=== PATIENT | female | born 1955 | race African-American/Black ===

== ENCOUNTER 2018-03-18 21:23 | Emergency (ER) | payer MEDICAID ==
[~2018-03-18] VITALS: Ht 162.6 cm; Wt 136.0 kg
[~2018-03-18 21:23] MED LIST: DICL75TA5; FURO40TA5; HYDR2TAB7; METH-612; MSCON15; OXYC-515; PREG150C; TRIAMTERENE
[2018-03-18 21:31] VITALS: BP 183/102
== END 2018-03-19 03:29 | disposition left against medical advice (07) ==
LOC: ER 22:14
DX: Z53.21 Procedure and treatment not carried out due to patient leaving prior to being seen by health care provider (principal)

== ENCOUNTER 2018-08-13 20:31 | Inpatient (IN) | payer MEDICAID ==
[~2018-08-13] VITALS: Ht 157.5 cm; Wt 127.0 kg
[2018-08-13] MEDS ORDERED: KETOROLAC 30MG/ML VIAL IV STA (22:46)
[2018-08-13] MEDS ORDERED: SODIUM CHLORIDE 0.9% 1,000 ML IV ONE (22:46)
[2018-08-14 00:26] LABS: BASOPHILS % 0.7 % (0.0-2.0); EOSINOPHILS % 6.2 % (0.0-5.0); HEMATOCRIT. 43.6 % (36.0-48.0); HEMOGLOBIN. 13.9 g/dL (12.0-16.0); LYMPHOCYTES % 43.4 % (20.0-50.0); MEAN CORPUSCULAR HEMOGLOBIN 26.8 pg (28.0-32.0); MEAN CORPUSCULAR VOLUME 83.9 fL (81.0-99.0); MEAN PLATELET VOLUME 8.7 fl (7.4-10.4); MONOCYTES % 7.7 % (2.0-8.0); PLATELET 190 x1000/uL (130-400); RED BLOOD CELL COUNT 5.19 mill/uL (4.2-5.4); RED CELL DISTRIBUTION WIDTH 15.2 % (11.6-14.6)
[2018-08-14 00:31] LABS: PROTHROMBIN TIME 10.1 sec (9.1-11.1)
[2018-08-14 01:47] LABS: CHLORIDE 114 mEq/L (98-107)
[2018-08-14] MEDS ORDERED: MORPHINE SULFATE 4 MG/ML CPJ (NOT FOR IM USE) IV ONE (02:15)
[2018-08-14] MEDS ORDERED: SODIUM CHLORIDE 0.9% 1,000 ML IV SCH ×2 (02:30→08:45)
[2018-08-14 08:07] LABS: CLARITY URINE CLEAR (CLEAR); COLOR URINE YELLOW (YELLOW); KETONES URINE NEGATIVE (NEGATIVE); LEUKOCYTE ESTERASE URINE NEGATIVE (NEGATIVE); NITRITE URINE NEGATIVE (NEGATIVE); OCCULT BLOOD URINE NEGATIVE (NEGATIVE); PROTEIN URINE NEGATIVE (NEGATIVE); SPECIFIC GRAVITY URINE 1.014 (1.005-1.030); UROBILINOGEN URINE 0.2 E.U./dL (0.2-1.0)
[2018-08-14] MEDS ORDERED: DIPHENHYDRAMINE 50MG/ML VIAL IV PRN (08:15)
[2018-08-14] MEDS ORDERED: IPRATROPIUM/ALBUTEROL 0.5-3(2.5)MG/3ML NEB INH PRN (08:15)
[2018-08-14] MEDS ORDERED: ENOXAPARIN 40MG/0.4ML SYR SUBCUT SCH (08:15)
[2018-08-14 08:45] VITALS: BP 130/82
[2018-08-14 09:00] VITALS: BP 130/82
[2018-08-14] MEDS: ENOXAPARIN 40MG/0.4ML SYR SUBCUT SCH ×2 (10:24→21:44)
[2018-08-14] MEDS: ONDANSETRON HCL 4MG/2ML INJ IV PRN ×2 (10:24→21:44)
[2018-08-14] MEDS: HYDROMORPHONE HCL/PF 2MG/ML CPJ IV PRN ×2 (10:26→21:44)
[2018-08-14] MEDS ORDERED: GLYB5TAB7 MT (11:41)
[2018-08-14] MEDS ORDERED: POTA99TA4 MT (11:42)
[2018-08-14] MEDS ORDERED: OXYC-105 PO (11:44)
[2018-08-14] MEDS: BLOOD SUGAR DIAGNOSTIC STRIP TEST SCH ×4 (11:55→23:27)
[2018-08-14] MEDS: INSULIN LISPRO 100 UNITS/ML SUBCUT SCH ×3 (11:55→21:00)
[2018-08-14 12:00] VITALS: BP 131/80
[2018-08-14 16:00] VITALS: BP 129/86
[2018-08-14] MEDS: DEXTROSE 50% WATER 50ML SYRINGE IV PRN ×2 (16:53→17:11)
[2018-08-14] MEDS: DEXT 5%/0.45% NACL 1000ML 1,000 ML IV SCH (21:35)
[2018-08-15] VITALS: BP 109/73
[2018-08-15] MEDS: BLOOD SUGAR DIAGNOSTIC STRIP TEST SCH ×8 (00:40→21:15)
[2018-08-15 04:00] VITALS: BP 137/75
[2018-08-15] MEDS: INSULIN LISPRO 100 UNITS/ML SUBCUT SCH ×4 (07:50→21:15)
[2018-08-15 08:00] VITALS: BP 116/62
[2018-08-15] MEDS: ENOXAPARIN 40MG/0.4ML SYR SUBCUT SCH ×2 (09:33→20:09)
[2018-08-15] MEDS: DEXT 5%/0.45% NACL 1000ML 1,000 ML IV SCH ×2 (09:33→22:40)
[2018-08-15] MEDS: HYDROMORPHONE HCL/PF 2MG/ML CPJ IV PRN (09:33)
[2018-08-15 12:00] VITALS: BP 141/87
[2018-08-15 16:00] VITALS: BP 139/70
[2018-08-15 20:00] VITALS: BP 148/70
[2018-08-15] MEDS: HYDROMORPHONE HCL 2MG TABLET PO PRN (20:10)
[2018-08-15 22:33] LABS: BASOPHILS % 0.7 % (0.0-2.0); EOSINOPHILS % 4.3 % (0.0-5.0); HEMATOCRIT. 39.9 % (36.0-48.0); HEMOGLOBIN. 12.8 g/dL (12.0-16.0); LYMPHOCYTES % 34.8 % (20.0-50.0); MEAN CORPUSCULAR HEMOGLOBIN 26.7 pg (28.0-32.0); MEAN CORPUSCULAR VOLUME 83.5 fL (81.0-99.0); MEAN PLATELET VOLUME 8.2 fl (7.4-10.4); MONOCYTES % 9.5 % (2.0-8.0); NEUTROPHILS % 50.7 % (40.0-76.0); PLATELET 179 x1000/uL (130-400); RED BLOOD CELL COUNT 4.78 mill/uL (4.2-5.4); RED CELL DISTRIBUTION WIDTH 14.6 % (11.6-14.6)
[2018-08-15 22:41] LABS: CHLORIDE 112 mEq/L (98-107)
[2018-08-16] VITALS: BP 143/76
[2018-08-16] MEDS: HYDROMORPHONE HCL 2MG TABLET PO PRN ×2 (05:54→15:46)
[2018-08-16 06:56] LABS: BASOPHILS % 0.5 % (0.0-2.0); HEMATOCRIT. 40.8 % (36.0-48.0); HEMOGLOBIN. 12.8 g/dL (12.0-16.0); LYMPHOCYTES % 45.8 % (20.0-50.0); MEAN CORPUSCULAR HEMOGLOBIN 26.3 pg (28.0-32.0); MEAN CORPUSCULAR VOLUME 83.7 fL (81.0-99.0); MEAN PLATELET VOLUME 8.3 fl (7.4-10.4); MONOCYTES % 10.6 % (2.0-8.0); NEUTROPHILS % 38.1 % (40.0-76.0); PLATELET 170 x1000/uL (130-400); RED BLOOD CELL COUNT 4.87 mill/uL (4.2-5.4); RED CELL DISTRIBUTION WIDTH 14.8 % (11.6-14.6)
[2018-08-16 07:18] LABS: CHLORIDE 113 mEq/L (98-107)
[2018-08-16] MEDS: BLOOD SUGAR DIAGNOSTIC STRIP TEST SCH ×3 (07:20→17:15)
[2018-08-16] MEDS: INSULIN LISPRO 100 UNITS/ML SUBCUT SCH ×3 (07:50→17:16)
[2018-08-16 08:00] VITALS: BP 145/92
[2018-08-16] MEDS: ENOXAPARIN 40MG/0.4ML SYR SUBCUT SCH (10:50)
[2018-08-16 12:00] VITALS: BP 144/90
[2018-08-16] MEDS: DEXT 5%/0.45% NACL 1000ML 1,000 ML IV SCH (12:00)
[2018-08-16 16:00] VITALS: BP 135/78
[2018-08-16] MEDS ORDERED: LOPERAMIDE HCL 2MG CAPSULE PO NR (16:45)
[2018-08-16] MEDS ORDERED: IMOD GT (16:51)
[2018-08-16 18:14] VITALS: BP 130/53
== END 2018-08-16 19:20 | disposition home or self-care (01) | DRG 254 ==
LOC: ER 20:31 → 6EST 08-14 02:03 → EDBEDREQ 08-14 04:54 → ENRESERV 08-14 05:20 → CANRESERV 08-14 05:20 → ENRESERV 08-14 08:00
PROVIDERS: ADMIT Internal Medicine; ATTEND Internal Medicine
DX: K43.9 Ventral hernia without obstruction or gangrene (principal); E11.649 Type 2 diabetes mellitus with hypoglycemia without coma; I10 Essential (primary) hypertension; F17.200 Nicotine dependence, unspecified, uncomplicated; M79.7 Fibromyalgia; Z86.73 Personal history of transient ischemic attack (TIA), and cerebral infarction without residual deficits; Z88.0 Allergy status to penicillin; Z88.8 Allergy status to other drugs, medicaments and biological substances
CPT/HCPCS: 36415; 71045; 74176; 80048; 82962; 93005; 93970; 96361; 96374; 99285; J1170; J1650; J1815; J1885; J2270; J2405; J3490; J7030

== ENCOUNTER 2019-03-17 21:34 | Inpatient (IN) | payer MEDICAID ==
[~2019-03-17] VITALS: Ht 157.5 cm; Wt 126.6 kg
[~2019-03-17 21:34] MED LIST changes: +GLYB5TAB7 MT; +IMOD GT; +OXYC-105 PO; +POTA99TA4 MT
[2019-03-17 23:16] LABS: BASOPHILS % 1.1 % (0.0-2.0); EOSINOPHILS % 4.7 % (0.0-5.0); HEMATOCRIT. 42.6 % (36.0-48.0); LYMPHOCYTES % 39.1 % (20.0-50.0); MEAN CORPUSCULAR HEMOGLOBIN 27.4 pg (28.0-32.0); MEAN CORPUSCULAR VOLUME 83.5 fL (81.0-99.0); MEAN PLATELET VOLUME 7.7 fl (7.4-10.4); MONOCYTES % 8.7 % (2.0-8.0); NEUTROPHILS % 46.4 % (40.0-76.0); PLATELET 210 x1000/uL (130-400); RED BLOOD CELL COUNT 5.11 mill/uL (4.2-5.4); RED CELL DISTRIBUTION WIDTH 13.8 % (11.6-14.6)
[2019-03-17 23:21] LABS: CHLORIDE 110 mEq/L (98-107)
[2019-03-17] MEDS ORDERED: ONDANSETRON HCL 4MG/2ML INJ IV STA (23:53)
[2019-03-17] MEDS ORDERED: SODIUM CHLORIDE 0.9% 1,000 ML IV ONE (23:53)
[2019-03-17] MEDS ORDERED: MORPHINE SULFATE 4 MG/ML CPJ (NOT FOR IM USE) IV STA (23:53)
[2019-03-18 00:14] LABS: CLARITY URINE CLEAR (CLEAR); COLOR URINE YELLOW (YELLOW); KETONES URINE NEGATIVE (NEGATIVE); LEUKOCYTE ESTERASE URINE NEGATIVE (NEGATIVE); NITRITE URINE NEGATIVE (NEGATIVE); OCCULT BLOOD URINE NEGATIVE (NEGATIVE); PROTEIN URINE NEGATIVE (NEGATIVE)
[2019-03-18] MEDS: MORPHINE SULFATE 2 MG/ML CPJ (NOT FOR IM USE) IV PRN ×3 (06:54→16:19)
[2019-03-18] MEDS: ONDANSETRON HCL 4MG/2ML INJ IV PRN ×2 (06:54→16:29)
[2019-03-18] MEDS: DEXT 5%/0.45% NACL KCL 20MEQ/L 1,000 ML IV SCH ×2 (07:29→16:19)
[2019-03-18] MEDS ORDERED: SODIUM BICARBONATE 4% (2.4MEQ) 5ML VIAL IV ONE (07:38)
[2019-03-18] MEDS ORDERED: LIDOCAINE HCL 1% 20ML VIAL (Pyxis) INJ ONE (07:38)
[2019-03-18 08:30] VITALS: BP 117/75
[2019-03-18 08:40] VITALS: BP 117/75
[2019-03-18] MEDS ORDERED: HYDROCODONE/ACETAMINOPHEN 5/325MG TABLET PO PRN (08:45)
[2019-03-18 12:00] VITALS: BP 104/45
[2019-03-18 16:00] VITALS: BP 99/57
[2019-03-18 17:39] VITALS: BP 99/57
== END 2019-03-18 18:56 | disposition home or self-care (01) | DRG 254 ==
LOC: ER 21:34 → EDBEDREQ 03-18 02:00 → 6EST 03-18 02:25 → EDBEDREQTM 03-18 02:28 → EDBEDREQ 03-18 02:28 → ENRESERV 03-18 07:32 → 6EST 03-18 08:46
PROVIDERS: ADMIT Internal Medicine; ATTEND Internal Medicine
DX: K43.9 Ventral hernia without obstruction or gangrene (principal); E44.1 Mild protein-calorie malnutrition; E87.8 Other disorders of electrolyte and fluid balance, not elsewhere classified; E66.9 Obesity, unspecified; E11.9 Type 2 diabetes mellitus without complications; I10 Essential (primary) hypertension; Z79.899 Other long term (current) drug therapy; Z88.0 Allergy status to penicillin; Z88.8 Allergy status to other drugs, medicaments and biological substances; Z86.73 Personal history of transient ischemic attack (TIA), and cerebral infarction without residual deficits; Z68.43 Body mass index [BMI] 50.0-59.9, adult; Z71.3 Dietary counseling and surveillance
CPT/HCPCS: 36415; 74176; 81003; 99285; J2270; J2405; J3490; J7030

== ENCOUNTER 2019-06-23 22:54 | Inpatient (IN) | payer MEDICAID ==
[~2019-06-23] VITALS: Ht 152.4 cm; Wt 146.5 kg
[~2019-06-23 22:54] MED LIST changes: -HYDR2TAB7; -MSCON15
[2019-06-23] MEDS ORDERED: MORPHINE SULFATE 4 MG/ML CPJ (NOT FOR IM USE) IV STA (23:34)
[2019-06-23] MEDS ORDERED: ONDANSETRON HCL 4MG/2ML INJ IV STA (23:34)
[2019-06-23 23:56] LABS: BASOPHILS % 0.9 % (0.0-2.0); EOSINOPHILS % 2.3 % (0.0-5.0); HEMATOCRIT. 46.5 % (36.0-48.0); LYMPHOCYTES % 28.5 % (20.0-50.0); MEAN CORPUSCULAR VOLUME 83.7 fL (81.0-99.0); MEAN PLATELET VOLUME 7.9 fl (7.4-10.4); MONOCYTES % 6.2 % (2.0-8.0); NEUTROPHILS % 62.1 % (40.0-76.0); PLATELET 218 x1000/uL (130-400); RED BLOOD CELL COUNT 5.56 mill/uL (4.2-5.4); RED CELL DISTRIBUTION WIDTH 14.2 % (11.6-14.6)
[2019-06-24] MEDS ORDERED: DIATR MEGLU/DIATRIZOATE SOLN 30ML ONE
[2019-06-24] MEDS ORDERED: IOHEXOL-300 100 ML BOTTLE ONE (00:01)
[2019-06-24 00:03] LABS: CHLORIDE 105 mEq/L (98-107)
[2019-06-24 00:04] LABS: PROTHROMBIN TIME 10.2 sec (9.6-11.0)
[2019-06-24] MEDS ORDERED: SODIUM CHLORIDE 0.9% 1,000 ML IV ONE (00:06)
[2019-06-24] MEDS ORDERED: ONDANSETRON HCL 4MG/2ML INJ IV ONE (02:45)
[2019-06-24] MEDS ORDERED: MORPHINE SULFATE 4 MG/ML CPJ (NOT FOR IM USE) IV ONE (02:45)
[2019-06-24] MEDS: DEXT 5%/0.45% NACL 1000ML 1,000 ML IV SCH ×2 (08:15→19:02)
[2019-06-24 08:27] VITALS: BP 125/60
[2019-06-24] MEDS: LEVOFLOXACIN 500MG PREMIX 100 ML IV SCH (09:00)
[2019-06-24] MEDS ORDERED: DEXTROSE 50% WATER 50ML SYRINGE IV PRN (09:15)
[2019-06-24] MEDS ORDERED: ACETAMINOPHEN 650MG/20.3ML UDC PO PRN (09:15)
[2019-06-24] MEDS ORDERED: MORPHINE SULFATE 2 MG/ML CPJ (NOT FOR IM USE) IV PRN (09:15)
[2019-06-24] MEDS: MORPHINE SULFATE 2 MG/ML CPJ (NOT FOR IM USE) IV PRN ×3 (09:27→20:23)
[2019-06-24] MEDS: METRONIDAZOLE 500 MG PREMIX 100 ML IV SCH ×2 (10:00→17:08)
[2019-06-24] MEDS: ONDANSETRON HCL 4MG/2ML INJ IV PRN (10:34)
[2019-06-24 11:17] LABS: CLARITY URINE CLEAR (CLEAR); COLOR URINE YELLOW (YELLOW); KETONES URINE NEGATIVE (NEGATIVE); LEUKOCYTE ESTERASE URINE NEGATIVE (NEGATIVE); NITRITE URINE NEGATIVE (NEGATIVE); OCCULT BLOOD URINE NEGATIVE (NEGATIVE); PH URINE 5.5 (4.5-8.0); PROTEIN URINE NEGATIVE (NEGATIVE); UROBILINOGEN URINE 0.2 E.U./dL (0.2-1.0)
[2019-06-24 11:44] LABS: *AMPHETAMINES SCREEN URINE NEGATIVE (NEGATIVE); *BARBITURATES SCREEN URINE NEGATIVE (NEGATIVE); *BENZODIAZEPINES SCREEN URINE NEGATIVE (NEGATIVE); *COCAINE SCREEN URINE NEGATIVE (NEGATIVE); METHADONE URINE SCREEN NEGATIVE (NEGATIVE); OPIATES URINE SCREEN PRESUMTIVE POSITIVE (NEGATIVE)
[2019-06-24 11:45] LABS: PHENCYCLIDINE URINE SCREEN NEGATIVE (NEGATIVE)
[2019-06-24 11:46] LABS: CANNABINOID URINE SCREEN PRESUMTIVE POSITIVE (NEGATIVE)
[2019-06-24] MEDS: BLOOD SUGAR DIAGNOSTIC STRIP TEST SCH ×3 (12:20→21:28)
[2019-06-24] MEDS: INSULIN LISPRO 100 UNITS/ML SUBCUT SCH ×3 (12:50→21:00)
[2019-06-24 20:00] VITALS: BP 125/69
[2019-06-24] MEDS: PREGABALIN 75MG CAPSULE PO SCH (21:27)
[2019-06-25] MEDS: ONDANSETRON HCL 4MG/2ML INJ IV PRN (00:43)
[2019-06-25] MEDS: METRONIDAZOLE 500 MG PREMIX 100 ML IV SCH ×2 (02:32→10:00)
[2019-06-25] MEDS: MORPHINE SULFATE 2 MG/ML CPJ (NOT FOR IM USE) IV PRN ×2 (03:07→08:33)
[2019-06-25] MEDS: DEXT 5%/0.45% NACL 1000ML 1,000 ML IV SCH (03:53)
[2019-06-25 04:00] VITALS: BP 133/79
[2019-06-25] MEDS: BLOOD SUGAR DIAGNOSTIC STRIP TEST SCH (07:11)
[2019-06-25] MEDS: INSULIN LISPRO 100 UNITS/ML SUBCUT SCH (07:24)
[2019-06-25 07:43] LABS: CHLORIDE 108 mEq/L (98-107)
[2019-06-25 08:00] VITALS: BP 127/67
[2019-06-25] MEDS: LEVOFLOXACIN 500MG PREMIX 100 ML IV SCH (08:31)
[2019-06-25] MEDS: PREGABALIN 75MG CAPSULE PO SCH (08:31)
[2019-06-25] MEDS ORDERED: LINAGLIPTIN 5MG TABLET PO SCH (10:00)
[2019-06-25] MEDS ORDERED: OXYC-515 MT (10:11)
[2019-06-25 11:25] VITALS: BP 127/67
[2019-06-25 11:37] LABS: BASOPHILS % 0.5 % (0.0-2.0); EOSINOPHILS % 3.5 % (0.0-5.0); HEMATOCRIT. 47.7 % (36.0-48.0); HEMOGLOBIN. 15.2 g/dL (12.0-16.0); LYMPHOCYTES % 34.8 % (20.0-50.0); MEAN CORPUSCULAR HEMOGLOBIN 26.7 pg (28.0-32.0); MEAN CORPUSCULAR VOLUME 83.9 fL (81.0-99.0); MEAN PLATELET VOLUME 8.6 fl (7.4-10.4); MONOCYTES % 7.2 % (2.0-8.0); PLATELET 233 x1000/uL (130-400); RED BLOOD CELL COUNT 5.69 mill/uL (4.2-5.4); RED CELL DISTRIBUTION WIDTH 14.1 % (11.6-14.6)
== END 2019-06-25 13:40 | disposition home or self-care (01) | DRG 254 ==
LOC: ER 22:54 → 6EST 06-24 01:32 → EDBEDREQSVC 06-24 01:35 → EDBEDREQDT 06-24 01:35 → EDBEDREQ 06-24 01:35 → EDBEDREQTM 06-24 01:35 → ENRESERV 06-24 04:43
PROVIDERS: ADMIT Internal Medicine; ATTEND Internal Medicine
DX: K43.2 Incisional hernia without obstruction or gangrene (principal); E66.01 Morbid (severe) obesity due to excess calories; E87.2 Acidosis; E11.9 Type 2 diabetes mellitus without complications; F12.90 Cannabis use, unspecified, uncomplicated; I10 Essential (primary) hypertension; K46.9 Unspecified abdominal hernia without obstruction or gangrene; K57.30 Diverticulosis of large intestine without perforation or abscess without bleeding; Z86.73 Personal history of transient ischemic attack (TIA), and cerebral infarction without residual deficits; Z91.19 Patient's noncompliance with other medical treatment and regimen; Z88.0 Allergy status to penicillin; Z88.8 Allergy status to other drugs, medicaments and biological substances; Z79.899 Other long term (current) drug therapy; Z71.89 Other specified counseling; Z68.44 Body mass index [BMI] 60.0-69.9, adult
CPT/HCPCS: 36415; 74177; 80048; 80305; 81003; 82962; 83605; 99285; J1956; J2270; J2405; J3490; J7030